=== PATIENT | female | born 1980 | race Caucasian/White ===

== ENCOUNTER 2024-02-07 09:18 | Outpatient (OUT) | payer SELFPAY ==
--- NOTE | 2024-02-07 | MM_ITS ---
Patient Name: LAUREN SERRANO MR#: [id number] : 1980 Exam Date: 02/07/2024 Ordering Doctor: MARY ANN GREY CNP RADIOLOGY REPORT PROCEDURE: MM TOMOSYNTHESIS SCREENING BI COMPARISON: MAMMO NARENDRA DIAG DIG, 12/07/2011. MG MAMM RT UNI W CAD DIG, 01/28/2013. INDICATIONS: SCRENNING Calculator Name NCI Breast Cancer Risk Assessment Tool 5 Year Breast Cancer Risk 0.70% Lifetime Breast Cancer Risk 8.60% Personal Breast Cancer No Personal Ovarian Cancer No Treatments None Family Cancers Grandmother-maternal with breast cancer at age ~40; Father with prostate cancer at age ~50. LOCATION: [facility] BREAST COMPOSITION: The breasts are extremely dense, which lowers the sensitivity of mammography. FINDINGS: DIAGNOSTIC CATEGORY 2--BENIGN FINDING. NO CHANGE FROM COMPARISON. Scattered benign-appearing lymph nodes are present. RIGHT BREAST: No significant suspicious finding. LEFT BREAST: No significant suspicious finding. RECOMMENDATIONS: ROUTINE MAMMOGRAM AND CLINICAL EVALUATION IN 12 MONTHS. PLEASE NOTE: A NORMAL MAMMOGRAM DOES NOT EXCLUDE THE POSSIBILITY OF BREAST CANCER. A CLINICALLY SUSPICIOUS PALPABLE LUMP SHOULD BE BIOPSIED. Dictated by: Norm Leahy MD on 02/07/2024 at 11:37 Approved by: Norm Leahy MD on 02/07/2024 at 11:38
== END 2024-02-07 09:19 | disposition home or self-care (01) ==
LOC: MAMMO 09:18
PROVIDERS: Visit Provider Nurse Practitioner Family
DX: Z12.31 Encounter for screening mammogram for malignant neoplasm of breast (principal); Z80.3 Family history of malignant neoplasm of breast; Z80.42 Family history of malignant neoplasm of prostate
CPT/HCPCS: 77063; 77067

== ENCOUNTER 2024-10-08 21:51 | Emergency (ER) | payer SELFPAY ==
[2024-10-08] VITALS (9 sets, daily range): BP systolic 121–145; BP diastolic 78–95; PULSE 95; O2SAT 97–100; BMI 26.6
--- OUTSIDE RECORDS SUMMARY | 2024-10-08 21:57 | XMS_ITS | CCD ---
Author Organization [facility] Care Team Providers Care [employer] Set Up Mechanic Name Role Phone JOE GOLDSMITH Attending Unavailable JOE GOLDSMITH Consulting Unavailable JOE GOLDSMITH Admitting Unavailable DR MANDI ALEJANDRO Primary Care Unavailable Allergies Allergy Classification Reported Allergen(s) Allergy Type Date of Onset Reaction(s) Facility (1 source) Amoxicillin Drug Allergy 10-16-2013 [facility] (1 source) bee venom Drug allergy (disorder) 01-10-2014 [facility] (1 source) Penicillins Drug allergy (disorder) 12-17-2013 [facility] Problems Active Problems Problem Classification Problem Date Documented Da te Episodic/Chronic Unclassified (3 sources) CONTACT W/AND (SUSP) EXPOS COVID-19; Translations: [CONTACT W/AND (SUSP) EXPOS COVID-19] Onset: 08-21-2021 Past or Other Problems Problem Classification Problem Date Documented Da te Episodic/Chronic Unclassified (1 source) CONTACT W/AND (SUSP) EXPOS COVID-19; Translations: [CONTACT W/AND (SUSP) EXPOS COVID-19] Onset: 08-16-2021 Results Test Name Value Interpretation Reference Range Facil ity Covid-19 PCR (CVDTBH)on SARS-CoV-2 (COVID-19) RNA LUIS MANUEL+probe Ql (Unsp spec) Not detected Normal NOT DETECTED [facility] Comment on above: Result Comment: This test is not yet approved or cleared by the [place] FDA. When there are no FDA-approved or cleared tests available, and other criteria are met, FDA can make tests available under an emergency access mechanism called an Emergency Use Authorization (EUA). The EUA for this test is supported by the Archeologist of Health and Human Service's (HHS's) declaration that circumstances exist to justify the emergency use of in vitro diagnostics for the detection and/or diagnosis of the virus that causes COVID-19. This EUA will remain in effect (meaning this test can be used) for the duration of the COVID-19 declaration justifying emergency of IVDs, unless it is terminated or revoked by FDA (after which the test may no longer be used). When diagnostic testing is negative, the possibility of a false negative should be considered in the context of a patient's recent exposures and the presence of clinical signs and symptoms consistent with SARS-CoV-2. Performed By: #### [facility] #### [facility] [address], [place] [address] Dr. Andrew Ash Consent for Treatmenton Consent for Treatment [id number] #[id number] Normal [facility] Encounters Encounter Date Encounter Type Care Provider Facility Start: 08-16-2021 End: 08-16-2021 ambulatory [facility] Facility: Payers Date Payer Category Payer Unknown [id number] 1980 Unknown [id number] Summary Purpose Family History No Family History Records FoundNo Family History Records Found Advance Directives No Advanced Directives Records FoundNo Advanced Directives Records Found Additional Source Comments INFORMATION SOURCE (unrecogn ized section and content) DATE CREATED AUTHOR 05/20/2020 [facility] DATE CREATED AUTHOR AUTHOR'S ORGANIZ ATION 09/01/2021 [facility] FOR RECORDS PERTAINING TO PATIENTS WHO ARE OR HAVE BEEN ENROLLED IN A CHEMICAL DEPENDENCY/SUBSTANCEABUSE PROGRAM, SOME INFORMATION MAY BE OMITTED. This clinical summary was aggregated from multiple sources. Caution should be exercised in using it in the provision of clinical care. This summary normalizes information from multiple sources, and as a consequence, information in this document may materially change the coding, format and clinical context of patient data. In addition, data may be omitted in some cases. CLINICAL DECISIONS SHOULD BE BASED ON THE PRIMARY CLINICAL RECORDS. [facility] [employer] [facility]. provides no warranty or guarantee of the accuracy or completeness of information in this document.
[2024-10-08 23:02] LABS: Hematocrit 45.7 % (36.0-48.0); Hemoglobin 16.2 g/dL (12.0-16.0); Mean Corpuscular HGB Conc 35.4 g/dL (29.9-35.2); Mean Corpuscular Hemoglobin 31.1 pg (26.7-34.0); Mean Corpuscular Volume 87.7 fL (81.0-99.0); Mean Platelet Volume 10.1 fL (9.5-13.5); Platelet Count 285 10^3/uL (150-450); Red Blood Count 5.21 10^6/uL (4.20-5.40); Red Cell Distribution Width 12.7 % (11.0-15.0); White Blood Count 11.3 10^3/uL (4.0-11.0)
--- NOTE | 2024-10-08 23:02 | ED_ITS ---
HPI - Nausea/Vomiting/Diarrhea General Chief complaint: Nausea/Vomiting/Diarrhea Stated complaint: VOMITING, DIARRHEA Time Seen by Provider: 10/08/24 22:26 Source: patient Mode of arrival: walk-in History of Present Illness HPI Narrative: This 43-year-old female with no significant medical history presents for evaluation of nausea vomiting and diarrhea. The patient states she had dinner [facility] in [place]. She states it takes her approximately 20 minutes to get home and by the time she got home she had projectile vomiting. She has vomited 3 times and also had 3 episodes of diarrhea. She denies any specific abdominal pain. She states she is very thirsty but is afraid to drink anything because she knows she will throw it out. She is not having any chest pain or shortness of breath. She states that she was feeling fine before dinner and thinks that something that she ate made her sick. Related Data Allergies Allergy/AdvReac Type Severity Reaction Status Date / Time Penicillins Allergy Severe Anaphylaxis Verified 10/08/24 22:29 Review of Systems ROS Status of ROS 10 or more systems reviewed and unremark able except as noted in history and below PFSH PFSH Social History Little interest or pleasure in doing things: not at all Feeling down, depressed, or hopeless: not at all Exam Narrative Exam Narrative: Vital signs and Nursing Notes reviewed: Patient has a normal pulse, normal blood pressure, she is not hypoxic with pulse ox of 100% on room air General: Awake, alert, oriented, no acute distress, lying comfortably on the stretcher, no respiratory distress, no active vomiting HEENT: Normocephalic atraumatic, mucous membranes are moist and pink, eyes are clear, normal conjunctiva, vision is grossly intact, posterior pharynx is normal in appearance. Chest: Lungs are clear to auscultation with good air entry, there is no wheezing rhonchi or rales appreciated no accessory muscle use, patient is speaking in complete sentences-no chest wall tenderness to palpation CVS: Regular rate and rhythm S1-S2, no murmurs rubs or gallops, pulses are brisk and equal bilaterally ABD: Soft, nondistended, nontender, no rebound guarding or rigidity, bowel sounds are normal, no pulsatile masses appreciated Extremities: Moving all extremities, no lower extremity tenderness or swelling noted Skin: Normal in appearance without rash,pallor, petechiae or purpura Neuro: No focal deficits Constitutional Vital Signs, click to edit/add: Last Vital Signs Pulse 95 H 10/08/24 22:23 Resp 18 10/08/24 22:23 BP 121/79 10/08/24 23:00 Pulse Ox 97 10/08/24 23:20 O2 Del Method Room Air 10/08/24 22:23 Course Vital Signs Vital signs: Vital Signs Pulse Rate 95 H 10/08/24 22:23 Respiratory Rate 18 10/08/24 22:23 Blood Pressure 122/81 10/08/24 22:23 Pulse Oximetry 100 10/08/24 22:23 Oxygen Delivery Method Room Air 10/08/24 22:23 Pulse Rate 95 H 10/08/24 22:23 Respiratory Rate 18 10/08/24 22:23 Blood Pressure 121/79 10/08/24 23:00 Pulse Oximetry 97 10/08/24 23:20 Oxygen Delivery Method Room Air 10/08/24 22:23 MDM - Nausea/Vomiting/Diarrhea MDM Narrative Medical decision making narrative: This 43-year-old female presents for evaluation of acute onset of nausea vomiting and diarrhea after eating at a restaurant in [facility] in the evening. She does not have any abdominal pain. Her main complaint upon arrival is that she is very thirsty but knows if she drinks something she is going to vomit. An IV was placed and she was medicated with IV fluids, Zofran, Pepcid and Toradol. On reevaluation she is feeling much better and tolerating ice chips. She has a normal white count and hemoglobin. Electrolytes are normal. She has mild elevation in her alkaline phosphatase which was present previously. Should be given a dose of Zofran to take home and a prescription for Zofran and Pepcid to use over the course of the next several days. She was encouraged to drink plenty of fluids and slowly advance her diet as tolerated. Lab Data Labs: Lab Results 10/08/24 Range/Units 22:50 WBC 11.3 H (4.0-11.0) 10^3/uL RBC 5.21 (4.20-5.40) 10^6/uL Hgb 16.2 H (12.0-16.0) g/dL Hct 45.7 (36.0-48.0) % MCV 87.7 (81.0-99.0) fL MCH 31.1 (26.7-34.0) pg MCHC 35.4 H (29.9-35.2) g/dL RDW 12.7 (11.0-15.0) % Plt Count 285 (150-450) 10^3/uL MPV 10.1 (9.5-13.5) fL Seg Neuts % (Manual) 87.0 H (43.0-75.0) Lymphocytes % (Manual) 8.0 L (20.5-60.0) % Monocytes % (Manual) 4.0 (1.7-12.0) % Eosinophils % (Manual) 1.0 (0.9-7.0) % Basophils % (Manual) 0.0 L (0.2-2.0) % Neutrophils # (Manual) 9.83 H (1.4-6.5) 10^3/uL Lymphocytes # (Manual) 0.90 L (1.20-3.80) 10^3/uL Monocytes # (Manual) 0.45 (0.30-0.80) 10^3/uL Eosinophils # (Manual) 0.11 (0.00-0.70) 10^3/uL Basophils # (Manual) 0.00 (0.00-0.10) 10^3/uL Sodium 140 (136-145) mmol/L Potassium 3.4 L (3.5-5.1) mmol/L Chloride 102 (98-107) mmol/L Carbon Dioxide 28.3 (21.0-32.0) mmol/L Anion Gap 13.1 BUN 23.0 H (7.0-18.0) mg/dL Creatinine 0.97 (0.55-1.02) mg/dL Est GFR ( Amer) >60 (>=60 mL/min/1.73m^2) Est GFR (Non-Af Amer) >60 (>=60 mL/min/1.73m^2) BUN/Creatinine Ratio 23.7 Glucose 138 H (74-106) mg/dL Calcium 9.0 (8.5-10.1) mg/dL Total Bilirubin 0.9 (0.2-1.0) mg/dL AST 33 (15-37) U/L ALT 65 H (14-59) U/L Alkaline Phosphatase 131 H (46-116) U/L Total Protein 7.4 (6.4-8.2) g/dL Albumin 4.2 (3.4-5.0) g/dL Globulin 3.2 g/dL Albumin/Globulin Ratio 1.3 Discharge Plan Discharge Chief Complaint: Nausea/Vomiting/Diarrhea Clinical Impression: Gastroenteritis Patient Disposition: Home, Self-Care Time of Disposition Decision: 00:16 Condition: Good Print Language: Upper Sorbian Instructions: Gastroenteritis (ED) Referrals: Physician,Non-Staff, MD [Primary Care Provider] - 1 week
[2024-10-08] MEDS: ONDANSETRON PF 4 MG/2 ML VIAL IV (23:05)
[2024-10-08] MEDS: 0.9 % SODIUM CHLORIDE 1,000 ML 1000 ML IV (23:05)
[2024-10-08] MEDS: FAMOTIDINE/PF 20 MG/2 ML VIAL IV (23:05)
[2024-10-08] MEDS: KETOROLAC TROMETHAMINE 30 MG/ML VIAL IVP (23:05)
[2024-10-08 23:18] LABS: Alanine Aminotransferase 65 U/L (14-59); Albumin Globulin Ratio 1.3; Albumin Level 4.2 g/dL (3.4-5.0); Alkaline Phosphatase 131 U/L (46-116); Anion Gap 13.1; Aspartate Amino Transferase 33 U/L (15-37); BUN Creatinine Ratio 23.7; Bilirubin Total 0.9 mg/dL (0.2-1.0); Carbon Dioxide 28.3 mmol/L (21.0-32.0); Chloride 102 mmol/L (98-107); Estimated GFR (African America >60 (>=60 mL/min/1.73m^2); Estimated GFR (Non-African Ame >60 (>=60 mL/min/1.73m^2); Globulin 3.2 g/dL; Glucose 138 mg/dL (74-106); Potassium 3.4 mmol/L (3.5-5.1); Sodium 140 mmol/L (136-145); Total Protein 7.4 g/dL (6.4-8.2)
[2024-10-08 23:27] LABS: Eosinophils Absolute Manual 0.11 10^3/uL (0.00-0.70); Monocytes Absolute Manual 0.45 10^3/uL (0.30-0.80); Segmented Neut Absolute Manual 9.83 10^3/uL (1.4-6.5)
[2024-10-09] VITALS: BP 120/68; O2SAT 98
[2024-10-09 00:10] VITALS: O2SAT 97
[2024-10-09] MEDS: ONDANSETRON 4 MG RAPDIS TABLET SL (00:26)
[2024-10-09 00:27] VITALS: BP 119/78; PULSE 85; TEMP 37; O2SAT 97
--- NOTE | 2024-10-09 00:33 | PC.NURSE ---
i gave this patient verbal and written discharge orders along with 2 Rx and 1 medication to home with. this patient voices yes to understanding these discharge orders and medication. at time of discharge this patient voices no concerns and shows no signs of distress
== END 2024-10-09 00:36 | disposition home or self-care (01) ==
PROVIDERS: Emergency Provider Emergency Medicine
DX: K52.9 Noninfective gastroenteritis and colitis, unspecified (principal)
CPT/HCPCS: 36415; 80053; 85007; 85027; 96361; 96374; 96375; 99284; J1885; J2405; J3490; Q0162